=== PATIENT | male | born 1975 | race Hispanic/Latino ===

== ENCOUNTER 2016-12-03 10:38 | Emergency (ER) | payer OTHER ==
[~2016-12-03] VITALS: Ht 185.4 cm; Wt 136.1 kg
--- NOTE | 2016-12-03 11:34 | ED GI/GU/ABDOMINAL COMPLAINT ---
History of Present Illness General Chief Complaint: Abdominal Pain/Flank Pain Stated Complaint: R FLANK PAIN Source: patient Exam Limitations: no limitations Allergies Coded Allergies: No Known Allergies (12/03/16) Reconcile Medications Dicyclomine Hydrochloride (Bentyl) 10 MG CAPSULE 1 CAP PO TID PRN ABDOMINAL SPASMS Triage Note: 41 Y/O MALE C/O DIARRHEA LAST NIGHT; TODAY HAS PAIN TO R FLANK/RLQ. DENIES NAUSEA/VOMITING. STATES HE IS MOST COMFORTABLE LYING ON BACK. DENIES URINARY SYMPTOMS. DENIES HEMATURIA. REPORTS DECREASED APPETITE/PO INTAKE TODAY. AFEBRILE Triage Nurses Notes Reviewed? yes HPI: This patient is a 41-year-old male with past medical history including ami and diabetes who presented to the emergency department today for evaluation of right side pain. The patient reported that over the last several days he has been feeling sore and achy due to a lot of heavy lifting at work. He reported that yesterday for lunch rice, beans, and tofu. After that time he felt the urge to move his bowels. He had an episode of diarrhea. He had 5 more episodes of diarrhea after that time to the night. Last bowel movement was at 8:00 this morning. No blood in the stool. The patient reported that last night he also had onset of a sharp pain in his right side which is nonradiating and constant. At rest the pain is a 2 out of 10, when palpated the pain gets up to a 7 out of 10. No palliative factors. The patient reported that he was having nausea yesterday, but not today. No vomiting. He denied any fevers, chills, chest pain, difficulty breathing, or back pain. He denies any urinary urgency, frequency, blood in the urine, or urinary burning. (ROSALEE MCCOY,DARCI) Vital Signs & Intake/Output Vital Signs & Intake/Output Vital Signs Date Time Temp Pulse Resp B/P B/P Pulse O2 O2 Flow FiO2 Mean Ox Delivery Rate 12/03 1433 98.0 78 18 95/54 99 Room Air 12/03 1241 94 12/03 1240 98.7 90 18 99/51 94 Room Air 12/03 1041 97.9 100 16 112/71 97 Room Air Past History Travel History Traveled to [place] past 21 day No Medical History Any Pertinent Medical History? 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 No (DARCI TURK PA-C) Review of Systems Review of Systems Constitutional: Reports: no symptoms. EENTM: Reports: no symptoms. Respiratory: Reports: no symptoms. Cardiovascular: Reports: no symptoms. GI: Reports: see HPI. Genitourinary: Reports: no symptoms. Musculoskeletal: Reports: see HPI. Skin: Reports: no symptoms. Neurological/Psychological: Reports: no symptoms. All Other Systems: Reviewed and Negative (DARCI TURK PA-C) Physical Exam Physical Exam Gastrointestinal: normal bowel sounds, soft, no organomegaly, tenderness to palpation in the right upper and right lower quadrants. No rebound or guarding. No masses appreciated. Nondistended. Negative Rovsing sign. Negative psoas sign. Negative obturator sign. Comments: Well-developed well-nourished person in no acute distress HEENT: Normal EENT exam, head normocephalic, moist mucous membranes Pupils equally round and reactive to light. Neck: Supple, no lymphadenopathy Back: Antalgic gait. No midline tenderness. No CVA tenderness Cardiovascular: Regular rate and rhythm with no murmurs, rubs, or gallops Respiratory: Chest nontender. No respiratory distress. Breath sounds clear to auscultation bilaterally Extremity: Normal and equal pulses Neuro: Alert oriented x3, cranial nerves II through XII grossly intact. Skin: No appreciable rash on exposed skin, skin is warm and dry. Psych: Mood and affect is normal, memory and judgment is normal. Core Measures ACS in differential dx? Yes Severe Sepsis Present: No Septic Shock Present: No (DARCI TURK PA-C) Progress Differential Diagnosis: AAA, AMI, appendicitis, biliary colic, bowel obstruction , colon cancer, cholecystitis, diverticulitis, gastritis, hepatitis, hernia, ischemic bowel, inflamm bowel dis, pancreatitis, PUD/GERD, perforated viscous, pyelonephritis, ureterolithiasis, urinary retention, urethritis, UTI/pyelo Diagnostic Imaging: Viewed by Me: CT Scan. Discussed w/RAD: CT Scan. Radiology Impression: PATIENT: NANNETTE BURGOS PRESENT AGE: 41 PATIENT ACCOUNT NO: [id number] : 77 LOCATION: [facility] ORDERING PHYSICIAN: DARCI TURK PA-C SERVICE DATE: 12/03/161235 EXAM TYPE: CAT - CT ABD & PELVIS W/O IV CONTRAS EXAMINATION: CT ABDOMEN AND PELVIS WITHOUT CONTRAST CLINICAL INFORMATION: Evaluate for ureterolithiasis. Appendicitis. Right abdominal pain. COMPARISON: None TECHNIQUE: Multidetector volumetric imaging was performed from the superior aspect of the liver through the pubic symphysis. Sagittal and coronal reformatted images were obtained on the technologist's workstation. DLP: 1612 mGy-cm FINDINGS: LUNG BASES: The visualized lung bases are unremarkable. LIVER, GALLBLADDER, AND BILIARY TREE: There is diffuse hepatic steatosis. No focal liver abnormality. There is no intrahepatic or extrahepatic biliary dilatation. The gallbladder is unremarkable with no evidence of radiopaque gallstones, gallbladder wall thickening, or obvious pericholecystic inflammatory changes. PANCREAS: Unremarkable. SPLEEN: Unremarkable. ADRENAL GLANDS: Unremarkable. KIDNEYS AND URETERS: The kidneys are normal in size, shape, and attenuation. No hydronephrosis, hydroureter, or calculi seen. No perinephric stranding. BLADDER: Unremarkable. GASTROINTESTINAL TRACT: I cannot identify the appendix. However there is no inflammatory changes in the right lower quadrant. The bowel and stomach are normal. ABDOMINAL WALL: Small fat-containing inguinal hernias bilaterally. LYMPH NODES: Normal. VASCULAR : Unremarkable. PELVIC VISCERA: Unremarkable. OSSEOUS STRUCTURES: There are small cysts noted the femoral head neck junction anteriorly in the left side. This can be associated with femoral acetabular impingement syndrome in some patients. Otherwise the bones and joints are normal. IMPRESSION: No identified etiology for the patient's reported symptoms of right lower quadrant pain. Although the appendix cannot be visualized there is no inflammatory changes in the right lower quadrant. No urinary tract calculi. DICTATED BY: ABBY MADSEN MD DATE/TIME DICTATED:12/03/161323 NITRATE OPERATOR:SURESH DATE/TIME TRANSCRIBED:12/03/161323 CONFIDENTIAL, DO NOT COPY WITHOUT APPROPRIATE AUTHORIZATION. <Electronically signed in Other Vendor System> SIGNED BY: ABBY MADSEN MD 12/03/16 134 Initial ED EKG: none Comments: 12/03/2016 12:35:49 PM: As of the patient's bedside for reevaluation. He is currently sitting up comfortably on the stretcher, in no acute distress and nontoxic appearing. He is playing a game on his iPad. Will obtain a CT of the abdomen and pelvis. The patient reported that a couple years ago he was in the hospital and went into a coma after he was diagnosed with the flu. He reported that at that time he had gone into renal failure and was on dialysis. He reported that, "they caught my creatinine back to normal and I have not had any follow-up since." 12/03/2016 2:14:38 PM: Discussed this patient with Dr. Lyons. Unable to completely visualize the appendix on the noncontrast enhanced CT of the abdomen and pelvis. Likely gastroenteritis which account for white blood cell count increase in patient's pain. Due to the fact that we could not order a contrast enhanced CT scan of the abdomen and pelvis because of this patient's elevated creatinine level, cannot completely exclude appendicitis at this time. This patient was instructed to return should his symptoms worsen or develop any fevers or vomiting. (ROSALEE MCCOY,DARCI) Plan of Care: Orders Procedure Date/time Status Add-on Test (ER Only) 12/03 1249 Active LACTIC ACID 12/03 1155 Complete CULTURE,URINE 12/03 1142 Active URINALYSIS 12/03 1142 Complete LIPASE 12/03 1142 Complete DIRECT BILIRUBIN 12/03 1142 Complete COMPREHENSIVE METABOLIC PANEL 12/03 1142 Complete CBC WITHOUT DIFFERENTIAL 12/03 1142 Complete AMYLASE 12/03 1142 Complete Laboratory Tests 12/03/16 1155: Lactic Acid 0.8 12/03/16 1155: Anion Gap 13, Estimated GFR 56 L, BUN/Creatinine Ratio 34.3 H, Glucose 204 H, Calcium 8.5, Total Bilirubin 1.5 H, Direct Bilirubin 0.3, AST 34, ALT 40, Alkaline Phosphatase 114, Total Protein 6.8, Albumin 3.8, Globulin 3.0, Albumin/ Globulin Ratio 1.3, Amylase 58, Lipase 35, CBC w Diff MAN DIFF ORDERED, RBC 4.48 L, MCV 84.4, MCH 28.5, RDW 14.3, MPV 8.4, Gran % 85.4 H, Lymphocytes % 7.6 L, Monocytes % 5.8, Eosinophils % 0.7, Basophils % 0.5, Absolute Granulocytes 17.0 H, Absolute Lymphocytes 1.5, Absolute Monocytes 1.2 H, Absolute Eosinophils 0.1 , Absolute Basophils 0.1, Platelet Estimate VERIFIED BY SMEAR, Normocytic RBCs VERIFIED, Normochromic RBCs VERIFIED, PUBS MCHC 33.7 12/03/16 1145: Urine Color YEL, Urine Clarity CLEAR, Urine pH 6.0, Ur Specific Ramona 1.010, Urine Protein NEG, Urine Ketones NEG, Urine Nitrite NEG, Urine Bilirubin NEG, Urine Urobilinogen 0.2, Ur Leukocyte Esterase NEG, Ur Microscopic EXAM NOT REQUIRED, Urine Hemoglobin NEG, Urine Glucose NEG Microbiology 12/03 114 URINE ROUT: Urine Culture - RECD Departure Departure Disposition: HOME OR SELF CARE Condition: Stable Clinical Impression Primary Impression: Gastroenteritis Referrals: KIRSTEN Richardson,GERRI DON (PCP/Family) Additional Instructions: Be sure to stay hydrated and rest. He may take [id number] Tylenol for pain. Please return to the emergency department for any worsening symptoms. Follow-up with your primary care physician. Departure Forms: Customer Survey General Discharge Information Prescriptions: Current Visit Scripts Dicyclomine Hydrochloride (Bentyl) 1 CAP PO TID PRN ABDOMINAL SPASMS #12 CAP (DARCI TURK PA-C) PA/EDGING MACHINE CATCHER Co-Sign Statement Statement: ED Attending supervision documentation- [] I saw and evaluated the patient. I have also reviewed all the pertinent lab results and diagnostic results. I agree with the findings and the plan of care as documented in the PA's/EDGING MACHINE CATCHER's documentation. [X] I have reviewed the ED Record and agree with the PA's/EDGING MACHINE CATCHER's documentation. [] Additions or exceptions (if any) to the PAs/EDGING MACHINE CATCHER's note and plan are summarized below: [] (PALMA MAI,MEHNAZ Zavala)
[2016-12-03 12:13] LABS: ABSOLUTE BASOPHIL COUNT 0.1 /CUMM (0.0-0.2); ABSOLUTE EOSINOPHIL COUNT 0.1 /CUMM (0.0-0.7); ABSOLUTE LYMPH COUNT 1.5 /CUMM (1.2-3.4); ABSOLUTE MONOCYTE COUNT 1.2 /CUMM (0.10-0.60); BASOPHIL % 0.5 % (0.0-2.0); EOSINOPHIL % 0.7 % (0-5); GRANULOCYTE % 85.4 % (42.2-75.2); HEMATOCRIT 37.8 % (42-52); MEAN CORPUSCULAR HGB 28.5 PG (27.0-31.0); MEAN CORPUSCULAR HGB CONC 33.7 G/DL (33.0-37.0); MEAN CORPUSCULAR VOLUME 84.4 FL (80.0-94.0); MEAN PLATELET VOLUME 8.4 FL (7.4-10.4); PLATELET COUNT 253 /CUMM (130-400); RBC DISTRIBUTION WIDTH 14.3 % (11.5-14.5); RED BLOOD CELL CT 4.48 /CUMM (4.70-6.10); WHITE BLOOD CELL COUNT 19.9 /CUMM (4.8-10.8)
--- NOTE | 2016-12-03 13:43 | CT SCAN REPORT ---
EXAMINATION: CT ABDOMEN AND PELVIS WITHOUT CONTRAST CLINICAL INFORMATION: Evaluate for ureterolithiasis. Appendicitis. Right abdominal pain. COMPARISON: None TECHNIQUE: Multidetector volumetric imaging was performed from the superior aspect of the liver through the pubic symphysis. Sagittal and coronal reformatted images were obtained on the technologist's workstation. DLP: 1612 mGy-cm FINDINGS: LUNG BASES: The visualized lung bases are unremarkable. LIVER, GALLBLADDER, AND BILIARY TREE: There is diffuse hepatic steatosis. No focal liver abnormality. There is no intrahepatic or extrahepatic biliary dilatation. The gallbladder is unremarkable with no evidence of radiopaque gallstones, gallbladder wall thickening, or obvious pericholecystic inflammatory changes. PANCREAS: Unremarkable. SPLEEN: Unremarkable. ADRENAL GLANDS: Unremarkable. KIDNEYS AND URETERS: The kidneys are normal in size, shape, and attenuation. No hydronephrosis, hydroureter, or calculi seen. No perinephric stranding. BLADDER: Unremarkable. GASTROINTESTINAL TRACT: I cannot identify the appendix. However there is no inflammatory changes in the right lower quadrant. The bowel and stomach are normal. ABDOMINAL WALL: Small fat-containing inguinal hernias bilaterally. LYMPH NODES: Normal. VASCULAR: Unremarkable. PELVIC VISCERA: Unremarkable. OSSEOUS STRUCTURES: There are small cysts noted the femoral head neck junction anteriorly in the left side. This can be associated with femoral acetabular impingement syndrome in some patients. Otherwise the bones and joints are normal. IMPRESSION: No identified etiology for the patient's reported symptoms of right lower quadrant pain. Although the appendix cannot be visualized there is no inflammatory changes in the right lower quadrant. No urinary tract calculi.
[2016-12-03 14:33] VITALS: BP 95/54
[2016-12-03] MEDS ORDERED: BENTYL10 M1 PO (14:36)
== END 2016-12-03 14:42 ==
LOC: ERH 10:38
PROVIDERS: Physician Assistant
DX: K52.9 Noninfective gastroenteritis and colitis, unspecified (principal)
CPT/HCPCS: 74176; 81003; 87086; 96361; 96374; 96375; J1885

== ENCOUNTER 2017-11-28 18:27 | Emergency (ER) | payer OTHER ==
[~2017-11-28 18:27] MED LIST: BENTYL10 M1 PO
[2017-11-28 18:55] VITALS: BP 118/56
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
== END 2017-11-28 19:38 ==
LOC: ERH 18:27
DX: S46.919A Strain of unspecified muscle, fascia and tendon at shoulder and upper arm level, unspecified arm, initial encounter (principal); V49.40XA Driver injured in collision with unspecified motor vehicles in traffic accident, initial encounter; Y92.9 Unspecified place or not applicable; Y93.9 Activity, unspecified